=== PATIENT | male | born 1995 | race Caucasian/White ===

== ENCOUNTER 2016-08-30 13:24 | Emergency (ER) | payer BC ==
--- NOTE | 2016-08-30 17:08 | UC ---
Abdominal Pain Male HPI - HPI Summary HPI Summary: ONSET OF RIGHT SIDED PAIN THIS MORNING AFTER WAKING UP. NO TRAUMA OR INJURY. FELT A BIT WORSE WITH DEEP INSPIRATION AND STRETCHING TO THE LEFT. SINCE HE HAS BEEN HERE THE DISCOMFORT HAS MOSTLY RESOLVED. NO FEVER, NO VOMITING OR DIARRHEA. MILD NAUSEA AT ONSET THAT HAS SINCE RESOLVED. - History of Current Complaint Chief Complaint: UCAbdominalPain Stated Complaint: RIGHT SIDE ABD PAIN Time Seen by Provider: 08/30/16 16:58 Hx Obtained From: Patient Onset/Duration: Sudden Onset, Lasting Hours, Resolved Severity Initially: Moderate Severity Currently: None Pain Intensity: 2 Pain Scale Used: 0-10 Numeric Location: Other - RIGHT SIDE Radiates: No Character: Aching, Sharp Aggravating Factor(s):: Deep Breaths Alleviating Factor(s): Spontaneous Resolution Associated Signs And Symptoms: Positive: Negative - Allergies/Home Medications Allergies/Adverse Reactions: Allergies Allergy/AdvReac Type Severity Reaction Status Date / Time No Known Allergies Allergy Verified 08/30/16 15:46 Home Medications: Home Medications Ibuprofen TAB* [Advil TAB*] 08/30/16 [History] PMH/Surg Hx/FS Hx/Imm Hx Previously Healthy: Yes - Surgical History Surgical History: None - Family History Known Family History: Positive: Hypertension - Social History Alcohol Use: Occasionally Substance Use Type: None Smoking Status (MU): Never Smoked Tobacco Review of Systems Constitutional: Negative Skin: Negative Respiratory: Negative Cardiovascular: Negative Gastrointestinal: Abdominal Pain, Other - NAUSEA Genitourinary: Negative All Other Systems Reviewed And Are Negative: Yes Physical Exam Triage Information Reviewed: Yes Appearance: Well-Appearing, No Pain Distress, Well-Nourished Vital Signs: Initial Vital Signs Temp 98.6 F 08/30/16 15:42 Pulse 92 08/30/16 15:42 Resp 12 08/30/16 15:42 BP 152/75 08/30/16 15:42 Pulse Ox 100 08/30/16 15:42 Vital Signs Reviewed: Yes Eyes: Positive: Conjunctiva Clear ENT: Positive: Hearing grossly normal Neck: Positive: Supple Respiratory Exam: Normal Cardiovascular Exam: Normal Abdomen Description: Positive: Nontender, Soft. Negative: CVA Tenderness (R), CVA Tenderness (L), Distended, Guarding Bowel Sounds: Positive: Present Musculoskeletal: Positive: No Edema Neurological: Positive: Alert Psychological: Negative: Age Appropriate Behavior Skin: Negative: rashes Abd Pain Male Course/Dx - Differential Dx/Clinical Impression Provider Diagnoses: RIGHT SIDE PAIN - RESOLVED Discharge - Discharge Plan Condition: Stable Disposition: HOME Patient Education Materials: Abdominal Pain (ED) Forms: *School Release Referrals: [facility] @ [Outside] Additional Instructions: NO CLEAR ETIOLOGY OF YOUR SYMPTOMS. SINCE THEY HAVE MOSTLY RESOLVED THERE IS NO INDICATION FOR ACUTE INTERVENTION. SEEK FOLLOW-UP IF YOUR SYMPTOMS RECUR OR IF YOU DEVELOP FEVER, NAUSEA, VOMITING OR ANY OTHER CONCERNING SYMPTOMS.
[2016-08-30 17:27] VITALS: BP 147/73
== END 2016-08-30 17:15 | disposition home or self-care (01) ==
LOC: UCEAST 13:24
DX: R10.9 Unspecified abdominal pain (principal)
CPT/HCPCS: 99202; G0463

== ENCOUNTER 2016-09-01 16:02 | Emergency (ER) | payer BC ==
[2016-09-01] MEDS ORDERED: NS 0.9% 1000 ML* 1,000 ML IV ONE (18:50)
[2016-09-01] MEDS ORDERED: Ketorolac INJ* 30 MG/ML 1 ML VIAL IV PUSH ONE (19:01)
[2016-09-01 19:30] LABS: Urine Bilirubin Negative (Negative); Urine Glucose Negative (Negative); Urine Nitrite Negative (Negative)
--- NOTE | 2016-09-01 19:51 | ED ---
Abdominal Pain/Male - HPI Summary HPI Summary: 20M presents with RUQ pain for 3 days. He states he had nausea on the first day but that has since resolved. He states that he has had a decreased in appetite off and on. He states that occasionally his pain radiates to his chest. He states that breathing deeply makes his pain worst in his abdomen. He denies any cough, SOB. He denies any vomiting. He denies any fever. He admits to some occasionally diarrhea. He has no previous pain like this in past. Pain unchanged with food. He has no abdominal surgeries in past. Was seen at and told to come here due to worsening pain. denies any one else being sick. Denies any history of heartburn or PUD. denies any blood in BM. denies any flank pain or hematuria. - History of Current Complaint Chief Complaint: EDAbdPain Stated Complaint: ABD PAIN Time Seen by Provider: 09/01/16 18:49 Pain Intensity: 6 - Allergies/Home Medications Allergies/Adverse Reactions: Allergies Allergy/AdvReac Type Severity Reaction Status Date / Time No Known Allergies Allergy Verified 09/01/16 19:42 PMH/Surg Hx/FS Hx/Imm Hx Cardiovascular History: Denies: Hx Hypertension Respiratory History: Denies: Hx Asthma Infectious Disease History: No Infectious Disease History: Denies: Traveled Outside the [place] in Last 30 Days - Family History Known Family History: Positive: Hypertension - Social History Alcohol Use: Occasionally Substance Use Type: Reports: None Smoking Status (MU): Never Smoked Tobacco Review of Systems Negative: Fever Negative: Chest Pain Negative: Shortness Of Breath Positive: Abdominal Pain - RUQ pain, Diarrhea, Nausea - resolved. Negative: Vomiting All Other Systems Reviewed And Are Negative: Yes Physical Exam Triage Information Reviewed: Yes Vital Signs On Initial Exam: Initial Vitals Temp Pulse Resp BP Pulse Ox 98.1 F 120 16 160/68 100 09/01/16 16:26 09/01/16 16:26 09/01/16 16:26 09/01/16 16:26 09/01/16 16:26 Vital Signs Reviewed: Yes Appearance: Positive: Well-Appearing Skin: Positive: Warm, Dry Head/Face: Positive: Normal Head/Face Inspection Eyes: Positive: Normal, Conjunctiva Clear Respiratory/Lung Sounds: Positive: Clear to Auscultation, Breath Sounds Present Cardiovascular: Positive: Normal, RRR Abdomen Description: Positive: Soft, Other: - mild tenderness in RUQ, neg guevara sign, no rebound tenderness. Negative: Guarding Diagnostics - Vital Signs Vital Signs Temp Pulse Resp BP Pulse Ox 09/01/16 19:42 99.7 F 109 18 142/73 100 09/01/16 18:23 97.7 F 122 20 172/85 99 09/01/16 17:28 98.4 F 112 16 148/61 99 09/01/16 16:26 98.1 F 120 16 160/68 100 - Laboratory Lab Results: Lab Results 09/01/16 Range/Units 19:17 Urine Color Yellow Urine Appearance Clear Urine pH 6.0 (5-9) Ur Specific [place] 1.018 (1.010-1.030) Urine Protein Negative (Negative) Urine Ketones Negative (Negative) Urine Blood Negative (Negative) Urine Nitrate Negative (Negative) Urine Bilirubin Negative (Negative) Urine Urobilinogen Negative (Negative) Ur Leukocyte Esterase Negative (Negative) Urine Glucose Negative (Negative) Result Diagrams: 09/01/16 19:50 09/01/16 19:50 Lab Statement: Any lab studies that have been ordered have been reviewed, and results considered in the medical decision making process. - Ultrasound No standard instances Ultrasound Interpretation: No Acute Changes - IMPRESSION: No evidence of cholelithiasis or biliary ductal dilatation is noted. Ultrasound Interpretation Completed By: Radiologist Abdominal Pain Fem Course/Dx - Course Course Of Treatment: 20M presents with RUQ pain for 3 days. states pain has been getting worst. unaffected by food. admits to nausea first day that has resolved. admits to diarrhea. states breathing makes pain worst. never had this pain before. labs wbc: 10, Crp 20. u/s gallbladder normal. due to normal WBC and u/s do not see necessity for CT. explained do not have cause for symptoms told if change can always come back. will have follow up with IC. patient understands and agrees with plan - Diagnoses Differential Diagnosis/HQI/PQRI: Gall Bladder Disease, Pancreatitis, Urinary Tract Infection Provider Diagnoses: Abdominal pain Discharge - Discharge Plan Condition: Good Disposition: HOME Patient Education Materials: Abdominal Pain (ED) Referrals: [facility] [Primary Care Provider] - Additional Instructions: Take Tylenol or ibuprofen every 6 hours for pain Follow up with IC in a few days Return to ED if develop uncontrolled vomiting, fevers, or any new or worsening symptoms
--- NOTE | 2016-09-01 19:58 | RAD ---
Indication: Right upper quadrant pain. Real-time sonography of the right upper quadrant was performed. The liver is normal in size. No focal lesions or intrahepatic ductal dilatation is noted. The gallbladder demonstrates no gallstones, pericholecystic fluid or wall thickening. The common duct measures 3.2 mm. The right kidney measures 11.6 x 4.4 x 5.7 cm with no hydronephrosis. The pancreas is limited in evaluation. The aorta and inferior vena cava are unremarkable. IMPRESSION: No evidence of cholelithiasis or biliary ductal dilatation is noted.
[2016-09-01 20:03] LABS: Hematocrit 47 % (42-52); Hemoglobin 16.4 g/dl (14.0-18.0); Mean Corpuscular HGB Conc 35 g/dl (31-36); Mean Corpuscular Hemoglobin 30 pg (27-31); Mean Corpuscular Volume 86 fL (80-94); Mean Platelet Volume 9 um3 (7.4-10.4); Red Blood Count 5.53 10^6/ul (4.0-5.4); Red Cell Distribution Width 13 % (10.5-15); White Blood Count 10.3 10^3/ul (3.5-10.8)
[2016-09-01 20:04] LABS: Add Diff/Slide Review? Slide Review Added; Comments Flag Yes
[2016-09-01 20:18] LABS: ALT 37 U/L (7-52); AST 22 U/L (13-39); Alkaline Phosphatase 60 U/L (34-104); Anion Gap 8 mmol/L (2-11); BUN/Creatinine Ratio 9.8 (8-20); Blood Urea Nitrogen 9 mg/dL (6-24); CO2 Carbon Dioxide 27 mmol/L (22-32); Calcium 9.9 mg/dL (8.6-10.3); Chloride 101 mmol/L (101-111); EGFR African American 133.6 (>60); EGFR Non-African American 103.9 (>60); Globulin 3.4 g/dL (2-4); Glucose 88 mg/dL (70-100); Lipase < 10 U/L (11.0-82.0); Sodium 136 mmol/L (133-145); Total Protein 8.4 g/dL (6.4-8.9)
[2016-09-01 21:34] VITALS: BP 141/64
== END 2016-09-01 21:31 | disposition home or self-care (01) ==
LOC: ED 16:02
DX: R10.11 Right upper quadrant pain (principal); R19.7 Diarrhea, unspecified; R11.0 Nausea
CPT/HCPCS: 36415; 76705; 80053; 81003; 83690; 85025; 86141; 96374; 99283; J1885